=== PATIENT | female | born 1955 | race Caucasian/White ===

== ENCOUNTER → 2016-08-27 | Outpatient (CLI) | payer BC ==
[~2016-08-27] MED LIST: AZIT250T81 PO; PRED20TA PO
[2016-08-27 12:46] VITALS: BP 148/86
--- NOTE | 2016-08-27 12:46 | Urgent Care T Sheet Gen (E) ---
Intake General Temperature (Fahrenheit): 98.6 Pulse: 72 Blood Pressure Systolic: 148 Blood Pressure Diastolic: 86 Respirations: 18 SPO2: 97 Description of Symptoms Patient presents with illness x 2 weeks. States she is getting worse with time. Notes PND, sore throat, chest congestion and cough. Cough is worse at night. Fever early on however that has resolved. Been taking several OTC meds such as Mucinex and a decongestant. NyQuil last night. History of Present Illness Home Meds Active Scripts Azithromycin (Zithromax Z-López)6 Tab/Pkt [id number] Mg PO SEE INSTRUCTIONS #6 TAB Ref 0 Day One: Take 2 tablets by mouth Days Two-Five: Take 1 tablet by mouth Prov:RADHA ROSA 02/22/16 Respiratory Constitutional Symptoms: No Fever, Malaise EENTM: Nose Congestion Throat pain Respiratory: Cough Cardiovascular: No symptoms reported Gastrointestinal/Abdominal: No symptoms reported All Other Systems Reviewed Remaining Systems: All other systems reviewed with negative findings Physical Exam Physical Exam General Appearance: WD/WN No apparent distress Eyes, Ears, Nose, Throat Ex: TMs normal Pharyngeal erythema (clear PND with cobblestone appearance) Other (nose is clear) Neck Exam: SuppleNo Lymphadenopathy Respiratory Exam: Lungs clear Normal breath sounds Cardiovascular Exam: Regular rate, rhythm Departure Urgent Care Impression Impression: Primary Impression: Cough Departure Disposition: 01 HOME OR SELF-CARE Condition: Stable Referrals: JONI ANDERS MD (PCP) Additional Instructions: I have started the patient on a Z-Pack for infection and Prednisone for inflammation. Patient states her chest wall is tender from prolonged coughing. I have also prescribed Robitussin AC for nighttime use. DC all OTC meds. The decongestant is most likely increasing her BP no NSAIDs while on steroid Return as needed Patient understands DC instructions. All questions were answered. Scripts Prednisone 20 Mg [id number] Mg PO DAILY #6 TAB Prov:RADHA ROSA 08/27/16 Azithromycin (Zithromax Z-López)6 Tab/Pkt [id number] Mg PO SEE INSTRUCTIONS #6 TAB Ref 0 Day One: Take 2 tablets by mouth Days Two-Five: Take 1 tablet by mouth Prov:RADHA ROSA 08/27/16 End of report . RADHA ROSA Aug 27, 2016 12:46
== END ==
LOC: MHUC 12:22
PROVIDERS: ATTEND Physician Assistant
DX: R05 Cough (principal)
CPT/HCPCS: 99213